=== PATIENT | male | born 1995 ===

== ENCOUNTER 2023-03-15 03:27 | Day surgery (SDC) | payer BC, SELFPAY ==
[2023-03-15] VITALS (19 sets, daily range): BP systolic 102–150; BP diastolic 61–103; PULSE 73–103; RESP 16–18; TEMP 36.4–37.1; O2SAT 90–98; BMI 33.0
--- NOTE | 2023-03-15 03:54 | ED.ABDPAIN ---
HPI - Abdominal Pain General Date Seen: 03/15/23 Chief Complaint: Abdominal Pain Stated Complaint: lower right abdominal pain Time Seen by Provider: 03/15/23 03:36 Source: patient and family Mode of arrival: ambulatory Limitations: no limitations History of Present Illness HPI narrative: Patient is a very nice 28-year-old gentleman who presents here with progressive right lower quadrant pain since approximately 7:00 p.m. yesterday, his gradually worsen, he describes the pain in his right lower quadrant with a little bit of radiation to his suprapubic region. No history of any fevers chills or sweats denies a sore throat cough cold-like symptoms, never before had this in fact he thought this was is normal reflux, and took a Pepcid at home. Is allergic to morphine it is unknown allergy that he said he had when he was in 3rd grade. No previous history of surgeries does have a meniscal tear in his right knee and is on crutches. Did eat normally yesterday no history of dysuria frequency no history of diarrhea no other people sick here today with his girlfriend. MD elicited complaint: abdominal pain Related Data Home Medications Medication Instructions Recorded Confirmed bupropion HCl 150 mg 24 hr tablet, 150 mg PO DAILY 03/15/23 03/15/23 extended release famotidine 20 mg tablet (Acid 20 mg PO BID 03/15/23 03/15/23 Product Safety Consultant (famotidine)) omeprazole 20 mg capsule,delayed 20 mg PO DAILY 03/15/23 03/15/23 release venlafaxine 75 mg capsule,extended mg PO 03/15/23 release 24 hr Allergies Allergy/AdvReac Type Severity Reaction Status Date / Time morphine AdvReac Verified 03/15/23 03:37 Review of Systems Status of ROS Reports: 10 or more systems reviewed and unremarkable except as noted in History and below PFSH PFSH Social History Smoking Status: Never smoker Do you use any of these nicotine containing products: None How often do you have a drink containing alcohol: 2-3 times a week How many standard drinks containing alcohol do you have on a typical day: 1 or 2 How often do you have six or more drinks on one occasion: Never AUDIT-C Alcohol total score: 3 Non-prescribed substance use: denies use Exam Narrative: Exam Narrative: On examination in room 5 he is in no apparent distress he is pleasant alert pupils equal round reactive to light there is no scleral icterus redness TMs normal oropharynx normal chest is clear heart sounds are normal easy respirations are noted. Abdomen shows tenderness mild sore I described as moderate to mild in the right lower quadrant, little bit of tenderness in the suprapubic region. No CVA tenderness noted. No organomegaly normal male genitalia no tenderness of the testicles and no hernias noted. Skin reveals no petechiae rashes. Const: Vital Signs, click to edit/add: Vital Signs - 24 hr 03/15/23 03:31 03/15/23 06:38 Temperature 98 F 97.5 F L Pulse Rate [Pulse Oximeter] 73 92 Respiratory Rate 18 18 Blood Pressure [Ri ght Upper Arm] 150/103 H 129/84 Pulse Oximetry 98 93 Oxygen Delivery Me thod Room Air Documenting provider has reviewed patient's vital signs: yes Course Course Hospital Course: During this evaluation of this patient I considered multiple differential diagnosis is which included the life-threatening such as appendicitis, aortic aneurysm, mesenteric ischemia, bowel perforation, volvulus, and bowel obstruction. Other differential diagnosis is include but are not limited to cholecystitis, pancreatitis, hepatitis, gastritis, GERD, diverticulitis, peptic ulcer disease, pyelonephritis/UTI, renal colic/stone, testicular torsion as well as other acute scrotal processes, inflammatory bowel disease, as well as other etiologies We will start the process here with laboratory work I will give some Toradol some Zofran 500 mL of fluid, given the fact that our CT scanner is currently unavailable we will transfer him down by private vehicle to [place], and then have him come back. By then we will have the CT read we will decide on whether not this is appendicitis. Or other possibilities. He was comfortable with this. I think he is stable for the trip by private vehicle. Reevaluation(s) Time of Reevaluation #1: 06:53 Reevaluation #1: Patient's CT from [address] shows acute uncomplicated appendicitis, I spoke to the surgeon Dr. Rooney, she agreed with the diagnosis she will see him between cases today, we will keep him in the emergency department NPO status his pain is markedly improved with the Toradol the Zofran and the IV fluids. Surgeon did not want antibiotics given at this time Vital Signs Vital signs: Initial Vital Signs Temperature 98 F 03/15/23 03:31 Temperature Source Temporal Artery Scan 03/15/23 03:31 Pulse Rate 73 03/15/23 03:31 Respiratory Rate 18 03/15/23 03:31 Blood Pressure 150/103 H 03/15/23 03:31 Blood Pressure Mean 118 H 03/15/23 03:31 Blood Pressure Position Supine 03/15/23 03:31 Pulse Oximetry 98 03/15/23 03:31 Vital Signs Temperature 98 F 03/15/23 03:31 Pulse Rate 73 03/15/23 03:31 Respiratory Rate 18 03/15/23 03:31 Blood Pressure 150/103 H 03/15/23 03:31 Pulse Oximetry 98 03/15/23 03:31 Temperature 97.5 F L 03/15/23 06:38 Pulse Rate 92 03/15/23 06:38 Respiratory Rate 18 03/15/23 06:38 Blood Pressure 129/84 03/15/23 06:38 Pulse Oximetry 93 03/15/23 06:38 Oxygen Delivery Method Room Air 03/15/23 06:38 MDM - Abdominal Pain MDM Narrative Medical decision making narrative: During this evaluation of this patient I considered multiple differential diagnosis is which included the life-threatening such as appendicitis, aortic aneurysm, mesenteric ischemia, bowel perforation, volvulus, and bowel obstruction. Other differential diagnosis is include but are not limited to cholecystitis, pancreatitis, hepatitis, gastritis, GERD, diverticulitis, peptic ulcer disease, pyelonephritis/UTI, renal colic/stone, testicular torsion as well as other acute scrotal processes, inflammatory bowel disease, as well as other etiologies Differential Diagnosis Differential diagnosis: Likely abdominal pain, acute appendicitis, calculus of kidney, constipation, diverticulitis, gastroenteritis, pancreatitis and small bowel obstruction Medical Records Attestation: I reviewed the patient's medical records. Lab Data Attestation: I reviewed the patient's lab results. Labs: Lab Results 03/15/23 03/15/23 Range/Units 03:53 03:57 WBC 13.89 H (4.50-11.00) K/uL RBC 5.29 (4.30-5.90) m/uL Hgb 16.0 (13.5-17.5) gm/dL Hct 45.5 (37.0-53.0) % MCV 86 (80-100) fL MCH 30 (26-34) pg MCHC 35 (32-36) gm/dL RDW Coeff of Adolfo 11.7 (11.5-15.5) % Plt Count 206 (140-440) K/uL Neut % (Auto) 74.7 H (42.0-72.0) % Lymph % (Auto) 16.0 L (20-44) % Grand % (Auto) 7.9 (0.0-11.0) % Eos % (Auto) 1.0 (0.0-7.0) % Baso % (Auto) 0.2 (0.0-3.0) % Neut # (Auto) 10.40 H (1.7-7.0) K/uL Lymph # (Auto) 2.20 (0.90-2.90) K/uL Grand # (Auto) 1.10 H (0.00-0.90) K/UL Eos # (Auto) 0.10 (0.00-0.50) K/uL Baso # (Auto) 0.00 (0.00-0.30) K/uL Sodium 138 (135-149) mmol/L Potassium 4.0 (3.6-5.1) mmol/L Chloride 100 (96-114) mmol/L Carbon Dioxide 22 (20-32) mmol/L BUN 24 (5-24) mg/dL Creatinine 0.8 (0.5-1.5) mg/dL Estimated Creat Clear 139.41 Estimated GFR 122 ml/min Glucose 103 (60-115) mg/dL Calcium 9.5 (8.4-10.6) mg/dL Total Bilirubin 0.7 (0.1-1.5) mg/dL Direct Bilirubin 0.2 (0.0-0.5) mg/dL AST 31 (12-35) U/L ALT 63 H (4-50) U/L Alkaline Phosphatase 73 (40-150) U/L C-Reactive Protein 1.1 H (0.5-1.0) mg/dL Total Protein 8.5 H (6.0-8.3) g/dL Albumin 2.8 L (3.3-5.0) g/dL Amylase 63 (18-89) U/L Lipase 47 (23-300) U/L Urine Color Yellow (Yellow) Urine Appearance Clear (Clear) Urine pH 6.0 (5.0-8.5) Ur Specific [place] 1.015 (1.000-1.030) Urine Protein Negative (Negative) Urine Glucose (UA) Negative (Negative) Urine Ketones Negative (Negative) Urine Blood Negative (Negative) Urine Nitrite Negative (Negative) Urine Bilirubin Negative (Negative) Urine Urobilinogen 0.2 (0.2-1.0) Ur Leukocyte Esterase Negative (Negative) Urine RBC 0-2 (0-2) Urine WBC 0-2 (0-5) Ur Squamous Epith Cells Few (None-Few) Urine Bacteria None (None) Imaging Data CT scan - abdomen: Radiologist's impression: Acute uncomplicated appendicitis Discharge Plan Discharge Clinical Impression: Acute appendicitis Patient Disposition: XFER to OR Condition: Improved Instructions: Exploratory Laparoscopy (DC) Prescriptions: No Action venlafaxine 75 mg capsule,extended release 24hr PO omeprazole 20 mg capsule,delayed release(DR/EC) 20 mg PO DAILY famotidine [Acid Product Safety Consultant (famotidine)] 20 mg tablet 20 mg PO BID bupropion HCl 150 mg tablet extended release 24 hr 150 mg PO DAILY
[2023-03-15 04:03] LABS: Basophils Percent Auto 0.2 % (0.0-3.0); Hematocrit 45.5 % (37.0-53.0); Immature Granulocytes Pct Auto 0.2 %; Mean Corpuscular HGB Conc 35 gm/dL (32-36); Mean Corpuscular Hemoglobin 30 pg (26-34); Mean Corpuscular Volume 86 fL (80-100); Monocytes Percent Auto 7.9 % (0.0-11.0); Neutrophils Percent Auto 74.7 % (42.0-72.0); Platelet Count* 206 K/uL (140-440); RDW Coefficient of Variation % 11.7 % (11.5-15.5); Red Blood Count 5.29 m/uL (4.30-5.90); White Blood Count* 13.89 K/uL (4.50-11.00)
[2023-03-15] MEDS: KETOROLAC 30 MG/ML inj IVP (04:06)
[2023-03-15 04:07] LABS: Slide Review Reflex No
[2023-03-15] MEDS: 0.9 % SODIUM CHLORIDE 1000 ml 1,000 ML IV (04:07)
[2023-03-15] MEDS: ONDANSETRON 2 MG/ML inj 4 MG IVP (04:07)
[2023-03-15 04:16] LABS: Chloride* 100 mmol/L (96-114)
[2023-03-15 04:17] LABS: Albumin* 2.8 g/dL (3.3-5.0); Sodium* 138 mmol/L (135-149)
[2023-03-15 04:19] LABS: Amylase* 63 U/L (18-89); Carbon Dioxide* 22 mmol/L (20-32); Creatinine* 0.8 mg/dL (0.5-1.5); Est. Creatinine Clearance* 139.41; Estimated Glomerular Filt Rate 122 ml/min; Total Protein* 8.5 g/dL (6.0-8.3)
[2023-03-15 04:20] LABS: Alanine Aminotransferase* 63 U/L (4-50); Alkaline Phosphatase* 73 U/L (40-150); Aspartate Amino Transferase* 31 U/L (12-35); Bilirubin Direct* 0.2 mg/dL (0.0-0.5); Bilirubin Total* 0.7 mg/dL (0.1-1.5); Blood Urea Nitrogen* 24 mg/dL (5-24); Calcium* 9.5 mg/dL (8.4-10.6); Glucose* 103 mg/dL (60-115); Lipase* 47 U/L (23-300)
[2023-03-15 04:22] LABS: C Reactive Protein* 1.1 mg/dL (0.5-1.0)
--- NOTE | 2023-03-15 04:27 | ED.NURSE ---
[facility]. MD delaney verbal to have pt [facility] transport pt to [facility] for CT and back, patient and SO both verbally agree to understanding plan. pt wc ride out to SO ride, [facility] updated on pt on the way.
[2023-03-15 04:29] LABS: Appearance Urine Clear (Clear); Bilirubin Urine Negative (Negative); Blood Urine Negative (Negative); Color Urine Yellow (Yellow); Glucose Urine Negative (Negative); Ketones Urine Negative (Negative); Leukocyte Esterase Urine Negative (Negative); Nitrite Urine Negative (Negative); Protein Urine Negative (Negative); Specific Gravity Urine 1.015 (1.000-1.030); Urobilinogen Urine 0.2 (0.2-1.0)
[2023-03-15 04:52] LABS: RBC Urine 0-2 (0-2); Squamous Epithelial Cell Urine Few (None-Few); WBC Urine 0-2 (0-5)
--- NOTE | 2023-03-15 06:39 | ED.NURSE ---
patient returned from ct at [facility].
--- NOTE | 2023-03-15 07:13 | PM.GSHP ---
History of Present Illness History of Present Illness Date Seen: 03/15/23 Chief complaint: lower right abdominal pain Narrative: Ray Lopez is a 28 year old male who presents to the emergency department overnight with severe right lower quadrant pain. He stated that this started around 7:00 p.m. last night. It did not start in any other location. He states that laying down helps the pain and standing makes it worse. He has never had pain like this before. He has not had nausea or vomiting. He had a normal bowel movement last evening. No urinary symptoms. No chest pain or shortness of breath. No fevers. [facility] Social History (Updated 03/15/23 @ 10:02 by Monae Rooney MD) Narrative: He works as a cook at [employer] Smoking Status: Never smoker Do you use any of these nicotine containing products: None How often do you have a drink containing alcohol: 2-3 times a week How many standard drinks containing alcohol do you have on a typical day: 1 or 2 How often do you have six or more drinks on one occasion: Never AUDIT-C Alcohol total score: 3 Non-prescribed substance use: denies use Meds Home Medications and Allergies Home Medications Medication Instructions Recorded Confirmed Type bupropion HCl 150 mg 24 hr tablet, 150 mg PO DAILY 03/15/23 03/15/23 History extended release famotidine 20 mg tablet (Acid 20 mg PO BID 03/15/23 03/15/23 History Cable Weaver (famotidine)) omeprazole 20 mg capsule,delayed 20 mg PO DAILY 03/15/23 03/15/23 History release venlafaxine 75 mg capsule,extended mg PO 03/15/23 History release 24 hr Allergies Allergy/AdvReac Type Severity Reaction Status Date / Time morphine AdvReac Verified 03/15/23 03:37 Exam Narrative: Exam Narrative: General appearance: Alert, cooperative, and in no distress Eyes: PERRLA, eye lids clear, and sclera white HENT Head: Normocephalic Ears: External ears normal Pulmonary: Clear to auscultation bilaterally Cardiovascular Heart: Regular rate and rhythm Extremities: warm and well perfused Gastrointestinal Abdominal: Tender across his lower abdomen with guarding and rebound. No scars. Musculoskeletal: Extremities: Upper: Both upper extremities have normal joint range of motion and intact strength. Lower: Both lower extremities have normal joint range of motion and intact strength. Skin: Normal skin color, texture, and turgor. Neurologic: No focal deficits Psychiatric: Alert, oriented, cooperative, normal affect. Const: Vital Signs, click to edit/add: Vital Signs - 24 hr 03/15/23 03:31 03/15/23 06:38 Temperature 98 F 97.5 F L Pulse Rate [Pulse Oximeter] 73 92 Respiratory Rate 18 18 Blood Pressure [Ri ght Upper Arm] 150/103 H 129/84 Pulse Oximetry 98 93 Oxygen Delivery Me thod Room Air Results Results Labs: White blood cell count is elevated at 13.8. ALT is mildly elevated at 63. Electrolytes are normal. CRP is 1.[address] scan report/results: report reviewed and image reviewed Additional studies: CT scan done at [address] overnight COMPARISON: None TECHNIQUE: CT examination of the abdomen and pelvis was performed following the uneventful intravenous administration of 100 cc of Omnipaque 300. Thin section axial images were obtained from the lung bases through the pubic symphysis. Oral contrast was not administered. Please note that all CT scans at this facility use dose modulation, iterative reconstruction, and/or weight-based dosing when appropriate to reduce radiation dose to as low as reasonably achievable. FINDINGS: LUNG BASES: The lung bases as visualized appear normal.The heart size is normal at the lung bases. LIVER/BILIARY SYSTEM:The liver is normal in size and configuration. There is no focal mass and there is no intra- or extra hepatic biliary ductal dilatation.The gall bladder appears normal. ADRENALS: Normal KIDNEYS, URETERS and BLADDER:The kidneys appear normal. No visible mass, calculus or hydronephrosis. The ureters and bladder as visualized appear normal. SPLEEN:Normal appearance. PANCREAS: Appears normal. RETROPERITONEUM and MESENTERY: There is no mass, adenopathy or aortic aneurysm. GASTROINTESTINAL SYSTEM: Characteristic findings of acute uncomplicated appendicitis. The appendix is well seen. The appendix is distended with periappendiceal inflammatory change and there is an appendicolith. No collection or free air. PELVIS: No mass, adenopathy or free fluid.Incidental bilateral varicoceles OSSEOUS STRUCTURES and ABDOMINAL WALL: There is an age-appropriate appearance of the osseous structures.No significant abdominal wall defect. OTHER: No free fluid or free air. IMPRESSION: Acute uncomplicated appendicitis Assessment and Plan Assessment and plan (1) Acute appendicitis: Status: Acute Plan The patient is a 28-year-old male with acute appendicitis. We discussed that appendectomy is the preferred treatment for this. This can most often be done laparoscopically. We discussed risks and benefits of the procedure including but not limited to bleeding, need for conversion to open, risk of injury to other structures, need for possible bowel resection, and abscess formation. The patient understands that the risk of abscess is higher if the appendix is perforated. For that reason, we generally keep patient is in the hospital on IV antibiotics until vital signs and white blood cell count had normalized. We also discussed recovery including 2 weeks of lifting restrictions. He is agreeable to proceed and we will plan on appendectomy at the next OR availability.
[2023-03-15] MEDS: LACTATED RINGERS 1000 ML 1,000 ML 100 ML IV (08:04)
[2023-03-15] MEDS: HYDROmorphone 0.5 mg/0.5 ml inj IVP (09:20)
--- NOTE | 2023-03-15 10:38 | SUR.PREOP ---
PATIENT CAME TO [facility] FROM ED AT 0845. BECAUSE PATIENT WAS DISCHARGED, I WAS UNABLE TO CHART UNTIL ABOUT 10:20.
[2023-03-15] MEDS: PIPERACILLIN/TAZOBACTAM 3.375 GM INJ IVPB (12:05)
--- NOTE | 2023-03-15 12:34 | P.ANES_ITS ---
Anesthesia Charges Start Date/Time Anesthesia Start Date: 03/15/23 Anesthesia Start Time: 11:53 Stop Date/Time Anesthesia Stop Date: 03/15/23 Anesthesia Stop Time: 13:06 Summary Emergency: ADVERTISING DISPLAY ROTATOR
[2023-03-15] MEDS: BUPIVACAINE 0.25% 30 ML INJECTION (12:41)
--- NOTE | 2023-03-15 13:09 | PM.GSPRC ---
Operative Note Date of procedure: 03/15/23 Pre-op diagnosis: Acute appendicitis Post-op diagnosis: Same Type of Procedure: Laparoscopic appendectomy Indications: The patient is a 28-year-old male who presents to the emergency department with 1 day of right lower quadrant pain. Workup revealed acute appendicitis without evidence of perforation on CT scan. I recommended appendectomy to him and he agreed to proceed. Procedure Description: After discussing the risks and benefits of the procedure, the patient signed informed consent.? The operative site was marked and the patient was brought to the operating room and placed on the operating table in supine position.? Care was taken to pad the patient's pressure points.?? The patient was then intubated by anesthesia.?? The operative site was then prepped and draped in the usual sterile fashion.? A time-out was then performed. Entrance to the abdomen was obtained via a 5 mm optical trocar in the left upper quadrant. The abdomen was insufflated and briefly surveyed for any signs of injury. There were none. A 12 mm port was placed inferior to the umbilicus as well as a 5 mm port in the left lower quadrant. Both were done under direct vision. The patient was then placed in Trendelenburg position with the right side up. The small bowel was gently moved out of the way and the appendix was in view. A small amount of dissection was necessary to free the appendix from the surrounding pelvic attachments. The appendix was grasped and pulled into view. The tip was inflamed, however there was no sign of perforation. A mesenteric window was created between the base of the appendix and the mesoappendix. An Endo-SCOTTIE purple load stapler was then used to transect the appendix at its base. A vascular load stapler was then used to divide the mesoappendix. The staple lines were inspected for bleeding. There was none. The appendix was then removed from the abdomen using an Endo-Catch bag. The specimen was sent to pathology. The ports were then removed and the abdomen desufflated. The 12 mm port site fascia was closed with 0 Vicryl. The skin was then closed with absorbable subcuticular suture. Sterile dressings were then applied. Instrument sponge and needle counts were correct at the end of the case. The patient was then woken and transported to the PACU in stable condition. ? The patient tolerated the procedure well. Findings: Acute non perforated appendicitis. Anesthesia: GETA Surgeon: Monae Rooney MD Estimated blood loss (mL): 5 Specimen: Appendix Condition: stable Disposition: PACU
--- NOTE | 2023-03-15 13:38 | SUR.PHASEI ---
Pt is having intermittent apnea, lasting 8-10 seconds, he uses a CPAP at home but does not have it with him. Review vitals and breathing efforts with TUBE BUILDER, approved to return to [facility] to continue post op recovery.
--- NOTE | 2023-03-15 14:17 | SUR.PHASEII ---
PATIENT USES CPAP AT HOME. INSTRUCTED FAMILY TO MAKE SURE HE USES IT EVEN WHEN NAPPING. TOLERATING JUICE AND TOAST. HAS GONE TO BATHROOM.
--- NOTE | 2023-03-15 14:19 | CRLHL7_ITS ---
For Patients: As a result of the Cures Act, medical imaging exams and procedure reports are released immediately into your electronic medical record. You may view this report before your referring provider. If you have questions, please contact your health care provider. INDICATION: Fever TECHNIQUE: Chest 1 view COMPARISON: None FINDINGS: Volume loss in the right lung base with elevation right hemidiaphragm. Mild parenchymal densities left lung base. No pneumothorax. IMPRESSION: Bilateral basilar atelectasis, right greater than left. Dictated by Yuri Davalos MD @ 03/15/2023 3:09:52 PM (Electronically Signed)
--- NOTE | 2023-03-15 15:00 | PM.EN ---
Chart Event Note Chart Event Note: The patient postoperatively was noted to be hypoxic requiring supplemental oxygen in PACU. He was also quite sleepy. Oxygen saturation would drop down into the 80s. Discussed with anesthesia. No known aspiration event. In the same-day surgery area, he similarly, would drop his sats to 89 from 93 though he was able to be off of oxygen at this point. Breath sounds on exam were clear bilaterally. Chest x-ray was done and appears to show atelectasis bilaterally. I discussed this with the radiologist. The patient had been given an incentive spirometer in the meantime and his oxygen saturation came up to 97 on room air. No chest pain or shortness of breath. Discussed with the patient and his significant other about using incentive spirometry as well as the patient's CPAP at night when he goes to bed. I discussed with them that prescription pain pills can make the patient sleepy, however it should be safe for him to take them as prescribed which is 1 every 6 hours. He can also try taking ibuprofen and or Tylenol instead. He and his significant other were agreeable and he will be discharged home.
== END 2023-03-15 15:05 | disposition home or self-care (01) ==
LOC: ED 08:05 → OR 08:51
PROVIDERS: Emergency Provider Family Medicine; Visit Provider Surgery
PROC: 0DTJ4ZZ Resection of Appendix, Percutaneous Endoscopic Approach (ICD-10-PCS; CPT 44970; principal; 2023-03-15 12:05)
DX: K35.80 Unspecified acute appendicitis (principal); J95.89 Other postprocedural complications and disorders of respiratory system, not elsewhere classified; J98.11 Atelectasis; R09.02 Hypoxemia
CPT/HCPCS: 44970; 00840; 36415; 71045; 80048; 80076; 81001; 82150; 83690; 85025; 86140; 88304; 99140; 99284; 99285; J0330; J0665; J1100; J1170; J1885; J2250; J2405; J2543; J2704; J3010; J3490; J7030; J7120